=== PATIENT | female | born 1940 | race Two or more races ===

== ENCOUNTER 2017-12-26 14:01 | Outpatient (CLI) | payer MEDICARE, OTHER ==
--- NOTE | 2017-12-26 15:01 | Diagnostic Imaging Report ---
Indication: Right lower rib pain Technique: 2 views of the right ribs Comparison: none Findings: There is an old healed fracture deformity of the right posterior lateral eighth rib. There is questionably old healed fracture deformity of the anterolateral right ninth rib. No definite acute fractures. No gross pneumothorax. The bones are osteoporotic, which decreases sensitivity. Impression: Old fractures as described. No definite acute bony trauma
== END 2017-12-26 16:01 | disposition home or self-care (01) ==
LOC: RAD 14:01
DX: R07.81 Pleurodynia (principal); M81.0 Age-related osteoporosis without current pathological fracture